=== PATIENT | male | born 1990 | race Caucasian/White ===

== ENCOUNTER 2016-12-07 10:43 | Emergency (ER) | payer OTHER ==
[2016-12-07 11:56] VITALS: BP 148/62
[2016-12-07] MEDS ORDERED: Lidocaine 1%* 5 ML VIAL ONE (13:20)
--- NOTE | 2016-12-07 13:39 | UC ---
Laceration HPI - HPI Summary HPI Summary: bilateral hand abrasions and lacerations. Pt admits ETOH last pm, thinks he punched his TV with both hands. States he also got a piece of broken glass in his right foot. Pt is left handed. Prior hx fracture to right hand. Pt states the injury occurred approx 2 am. Denies other injury. Tetanus UTD, pt was in the [place]. - History Of Current Complaint Chief Complaint: UCLaceration Stated Complaint: HAND LAC Time Seen by Provider: 12/07/16 13:27 Hx Obtained From: Patient Laceration Location: Finger - right middle Mechanism Of Injury: Sharp Trauma - from punching his TV Onset/Duration: Sudden Onset, Lasting Hours, Still Present Severity: Moderate Pain Intensity: 0 Pain Scale Used: 0-10 Numeric Aggravating Factors: Nothing Related History: Dominant Hand Left - Allergies/Home Medications Allergies/Adverse Reactions: Allergies Allergy/AdvReac Type Severity Reaction Status Date / Time Gluten Meal Allergy GI Upset Verified 12/07/16 11:52 Peanut-containing Drug Allergy Unknown Verified 12/07/16 11:52 Products Reaction Details Home Medications: Home Medications PARoxetine HCL TAB* [Paxil TAB*] 20 mg PO DAILY 12/07/16 [History Confirmed 07/15] PMH/Surg Hx/FS Hx/Imm Hx Previously Healthy: Yes - Surgical History Surgical History: None - Family History Known Family History: Negative: Cardiac Disease, Hypertension, Diabetes - Social History Occupation: Student Alcohol Use: Rare Substance Use Type: Marijuana Smoking Status (MU): Never Smoked Tobacco - Immunization History Most Recent Tetanus Shot: UTD Review of Systems Constitutional: Negative Skin: Other - lacerations and abrasions to bilateral hands; piece of glass right foot Eyes: Negative ENT: Negative Respiratory: Negative Cardiovascular: Negative Gastrointestinal: Negative Genitourinary: Negative Motor: Negative Neurovascular: Negative Musculoskeletal: Negative Neurological: Negative Psychological: Negative All Other Systems Reviewed And Are Negative: Yes Physical Exam Triage Information Reviewed: Yes Appearance: Well-Appearing, No Pain Distress, Well-Nourished Vital Signs: Initial Vital Signs Temp 98.5 F 12/07/16 11:49 Pulse 88 12/07/16 11:49 Resp 16 12/07/16 11:49 BP 148/62 12/07/16 11:49 Pulse Ox 98 12/07/16 11:49 Vital Signs Reviewed: Yes Eyes: Positive: Conjunctiva Clear ENT: Positive: Normal ENT inspection Neck: Positive: Supple, Nontender Respiratory: Positive: No respiratory distress Cardiovascular: Positive: RRR, Pulses Normal, Brisk Capillary Refill Musculoskeletal: Positive: Strength Intact, ROM Intact, No Edema, Other: - laceration dorsum right middle PIP joint Neurological: Positive: Alert, Muscle Tone Normal Psychological Exam: Normal Skin: Positive: Other - lacerations and abrasions, multiple, on dorsum of both hands Laceration Repair - Laceration Repair 1 Description: Linear Laceration Size After Repair: Length (cm) - 3, Width (mm) - 1, Depth (mm) - 2 Debridement: No tendons visualized in the wound. Full flexion and extension. No debridement necessary. Modified For Repair: No Type Injection: Digital Anesthesia Used: 1.0% Lido - 5cc Cleansing Completed Via Routine Prep: Yes Irrigation With Pressure Irrigation Device: Yes Closure Material: Sutures - 5-0 #5 Closure Method: Single Layer Suture Of: Skin Suture Type: Nylon Laceration Course/Dx - Course/Dx Course Of Treatment: piece of glass removed from right plantar surface of foot without problem. Discussed with pt that the lacerations are old, but that will suture the one over his right PIP because it is over the joint and risk of infection is too great. Will start Augmentin now. Pt advised he needs wound recheck in 2 days to ensure no infection and that tendons are intact. - Differential Dx - Laceration/Wound Differental Diagnoses: Abrasion, Joint Space Violation, Laceration, Tendon Laceration Provider Diagnoses: laceration right middle finger with sutures. multiple abrasions and superficial lacerations. glass FB removal right foot Discharge - Discharge Plan Condition: Stable Disposition: HOME Prescriptions: Amoxicillin/Clavulanate TAB* [Augmentin TAB 875*] 875 mg PO BID #20 tab Patient Education Materials: Finger Laceration (ED) Additional Instructions: Return to urgent care for a wound check in two days. Wear the splint until you are rechecked in 2 days here. The sutures need to be removed by a medical professional in 7-10 days, either urgent care, orthopedics or your primary care provider. Finish the entire antibiotic prescription. You were given your first dose of Augmentin here. You need to take a second dose tonight at bedtime. Return to urgent care if you have any new or worsening symptoms.
[2016-12-07] MEDS ORDERED: Amoxicillin/Clavulanate TAB* 875 MG PO ONE (13:50)
--- NOTE | 2016-12-07 14:14 | RAD ---
HISTORY: Right hand trauma, lacerations COMPARISONS: None VIEWS: 2, Frontal and lateral views of the right hand FINDINGS: BONE DENSITY: Normal. BONES: There is no displaced fracture. JOINTS: There is no arthropathy. ALIGNMENT: There is no dislocation. SOFT TISSUES: Unremarkable. OTHER FINDINGS: None. IMPRESSION: NO ACUTE OSSEOUS INJURY. IF SYMPTOMS PERSIST, RECOMMEND REPEAT IMAGING.
--- NOTE | 2016-12-07 14:16 | RAD ---
HISTORY: Left hand pain, lacerations, trauma COMPARISONS: None VIEWS: 2, Frontal and lateral views of the left hand FINDINGS: BONE DENSITY: Normal. BONES: There is no displaced fracture. JOINTS: There is no arthropathy. ALIGNMENT: There is no dislocation. SOFT TISSUES: Unremarkable. OTHER FINDINGS: None. IMPRESSION: NO ACUTE OSSEOUS INJURY. IF SYMPTOMS PERSIST, RECOMMEND REPEAT IMAGING.
== END 2016-12-07 15:34 | disposition home or self-care (01) ==
LOC: UCCORT 10:43
DX: S61.212A Laceration without foreign body of right middle finger without damage to nail, initial encounter (principal); S91.341A Puncture wound with foreign body, right foot, initial encounter; T14.8 Other injury of unspecified body region; F12.90 Cannabis use, unspecified, uncomplicated; W22.8XXA Striking against or struck by other objects, initial encounter; Y92.9 Unspecified place or not applicable
CPT/HCPCS: 12001; 99202; A9270-GY; G0463

== ENCOUNTER 2016-12-09 09:50 | Emergency (ER) | payer OTHER ==
[2016-12-09 11:34] VITALS: BP 103/63
--- NOTE | 2016-12-09 11:45 | UC ---
HPI Wound/Suture Re-check - HPI Summary HPI Summary: WOUND CHECK RIGHT MID FINGER + LACERATION 2 DAYS AGO , HAD LAC REPAIR HERE AT THE URGENT CARE NO COMPLAINT , NO PAIN , NO DISCHARGE , NO FEVER , NO REDNESS OR SWELLING OF THE LAC - History Of Current Complaint Chief Complaint: UCLaceration Stated Complaint: RECHECK LACERATION Time Seen by Provider: 12/09/16 11:20 Hx Obtained From: Patient Onset/Duration: Sudden Onset, Still Present Severity: Moderate Procedure Type: WOUND CHECK / LACERATION RIGHT MID FINGER Surgery Date: 12/07/16 - Allergies/Home Medications Allergies/Adverse Reactions: Allergies Allergy/AdvReac Type Severity Reaction Status Date / Time Gluten Meal Allergy GI Upset Verified 12/09/16 11:35 Peanut-containing Drug Allergy Unknown Verified 12/09/16 11:35 Products Reaction Details PMH/Surg Hx/FS Hx/Imm Hx Previously Healthy: Yes - Surgical History Surgical History: None - Family History Known Family History: Negative: Cardiac Disease, Hypertension, Diabetes - Social History Alcohol Use: Rare Substance Use Type: Marijuana Substance Use Comment - Amount & Last Used: 12/08/16 Smoking Status (MU): Never Smoked Tobacco - Immunization History Most Recent Tetanus Shot: UTD Review of Systems Constitutional: Negative Skin: Negative Eyes: Negative ENT: Negative Respiratory: Negative Cardiovascular: Negative Gastrointestinal: Negative Genitourinary: Negative Motor: Negative Neurovascular: Negative Musculoskeletal: Negative Neurological: Negative Psychological: Negative All Other Systems Reviewed And Are Negative: Yes Physical Exam Triage Information Reviewed: Yes Appearance: Well-Appearing, No Pain Distress, Well-Nourished Vital Signs: Initial Vital Signs Temp 98.6 F 12/09/16 11:29 Pulse 58 12/09/16 11:29 Resp 24 12/09/16 11:29 BP 103/63 12/09/16 11:29 Eye Exam: Normal ENT: Positive: Normal ENT inspection, Hearing grossly normal, Pharynx normal Neck exam: Normal Neck: Positive: Supple, Nontender, No Lymphadenopathy Respiratory Exam: Normal Respiratory: Positive: Chest non-tender, Lungs clear Cardiovascular: Positive: RRR, No Murmur, Pulses Normal Abdominal Exam: Normal Abdomen Description: Positive: Nontender, No Organomegaly, Soft Skin: Positive: Other - WOUND CHECK : LACERATION RIGHT MID FINGER : SUTURES ARE INTACT, HEALING WELL NO ERYTHEMA, NO SWELLING, NO TENDERNESS OR DISCHARGE Course/Dx - Differential Dx - Laceration/Wound Provider Diagnoses: WOUND CHECK Discharge - Discharge Plan Condition: Stable Disposition: HOME Patient Education Materials: Care For Your Stitches (ED) Referrals: Non Staff,Doctor [Primary Care Provider] - 7 Days Additional Instructions: CHANGE THE DRESSING DAILY , KEEP THE WOUND CLEAN AND DRY FOLLOW UP IN 7 DAYS FOR SUTURE REMOVAL
== END 2016-12-09 11:53 | disposition home or self-care (01) ==
LOC: UCCORT 09:50
DX: Z48.01 Encounter for change or removal of surgical wound dressing (principal); Z91.010 Allergy to peanuts; Z91.018 Allergy to other foods
CPT/HCPCS: 99211; G0463

== ENCOUNTER 2016-12-16 09:50 | Emergency (ER) | payer OTHER ==
--- NOTE | 2016-12-16 11:21 | UC ---
HPI Wound/Suture Re-check - HPI Summary HPI Summary: Five sutures to right third finger here on 12/07/16. Here for removal. Denies any concerns or problems. no fevers, no discharge. healing well. - History Of Current Complaint Chief Complaint: UCLaceration Stated Complaint: SUTURE REMOVAL Time Seen by Provider: 12/16/16 11:20 - Allergies/Home Medications Allergies/Adverse Reactions: Allergies Allergy/AdvReac Type Severity Reaction Status Date / Time Gluten Meal Allergy GI Upset Verified 12/16/16 11:17 Peanut-containing Drug Allergy Unknown Verified 12/16/16 11:17 Products Reaction Details PMH/Surg Hx/FS Hx/Imm Hx Previously Healthy: Yes - Surgical History Surgical History: None - Family History Known Family History: Negative: Cardiac Disease, Hypertension, Diabetes - Social History Alcohol Use: Rare Substance Use Type: Marijuana Substance Use Comment - Amount & Last Used: 12/08/16 Smoking Status (MU): Never Smoked Tobacco - Immunization History Most Recent Tetanus Shot: UTD Review of Systems Constitutional: Negative Skin: Negative Eyes: Negative ENT: Negative Respiratory: Negative Cardiovascular: Negative Gastrointestinal: Negative Genitourinary: Negative Motor: Negative Neurovascular: Negative Musculoskeletal: Negative Neurological: Negative Psychological: Negative All Other Systems Reviewed And Are Negative: Yes Physical Exam Triage Information Reviewed: Yes Appearance: Well-Appearing Vital Signs: Initial Vital Signs Temp 98.6 F 12/16/16 11:16 Pulse 68 12/16/16 11:16 Resp 16 12/16/16 11:16 BP 104/62 12/16/16 11:16 Pulse Ox 98 12/16/16 11:16 Respiratory: Positive: Lungs clear, Normal breath sounds Cardiovascular Exam: Normal Cardiovascular: Positive: RRR, No Murmur Skin Exam: Normal - right finger - healing well, no bleeding, no d/c. CR brisk. gopod ROM Course/Dx - Course Course Of Treatment: 5 sutures removed wo incident. covered with bandaid. - Differential Dx - Laceration/Wound Differential Diagnoses: Suture Removal Provider Diagnoses: suture removal x 5 Discharge - Discharge Plan Condition: Stable Disposition: HOME Patient Education Materials: Stitches Removal (ED) Referrals: Garret Pardo MD [Primary Care Provider] - Additional Instructions: Watch for any bleeding or signs of infection - you can return here if this occurs.
[2016-12-16 11:25] VITALS: BP 104/62
== END 2016-12-16 11:27 | disposition home or self-care (01) ==
LOC: UCCORT 09:50
DX: Z48.02 Encounter for removal of sutures (principal)